=== PATIENT | male | born 1935 | race Asian ===

== ENCOUNTER 2018-01-02 12:00 | Inpatient (IN) | payer MEDICARE, MEDICAID ==
[~2018-01-02] VITALS: Ht 162.6 cm; Wt 65.8 kg
[~2018-01-02 12:00] MED LIST: AMIODARONE HCL100 MG ORAL; AMIODARONE HCL200 MG PO; ATENOLOL100 MG PO; Albuterol ud Inhalation HHN ONE; CIPRO500 MG/51 PO; DIGOXIN125 MCG ORAL; DILANTIN100 MG PO; DOXYCYCLINE MO150 MG PO; ECOTRIN325 MG PO; Ipratropium 0.02% Inh Soln 2.5ml UD HHN ONE; LEVOTHYROXINE50 MCG PO; NEXIUM40 MG PO; VIBRAMYCIN50 MG/5 M1 PO
[2018-01-02] MEDS ORDERED: Albuterol ud Inhalation ONE (12:08)
[2018-01-02] MEDS ORDERED: Ipratropium 0.02% Inh Soln 2.5ml UD ONE (12:08)
[2018-01-02 12:10] VITALS: BP 178/103
--- NOTE | 2018-01-02 12:27 | Emergency Room Report ---
History of Present Illness General Chief Complaint: Dyspnea/Respdistress Source: Patient, Family Member, EMS Present Illness HPI Patient was brought by EMS. Allegedly he was just discharged with a diagnosis of pneumonia to home (?[facility]). He was short of breath and his called EMS. There was a language barrier. Apparently O2 saturation was low in the field and oxygen was begun. The patient felt hot to touch. With phone tranlator, denies vomiting, rash, edema. Post gastrostomy tube. H/O throat cancer. H/O seizures - denies recent seizures. H/O hypothyroidism on meds. Patient not answering questions. History is limited. H/O end stage dementia Allergies: Coded Allergies: NO KNOWN ALLERGIES (Unverified Allergy, Unknown, 08/13/15) Patient History Limited by: medical condition Past Medical History: see triage record, old chart reviewed Past Surgical History: other - g tube Social History: Denies: smoking - former Social History Narrative Reviewed Nursing Documentation: PMH: Agreed; PSxH: Agreed Nursing Documentation-PMH Past Medical History: No History, Except For Hx Cardiac Problems: Yes Hx Hypertension: Yes Hx Cancer: Yes - throat Hx Gastrointestinal Problems: Yes - gtube Hx Neurological Problems: Yes Hx Dementia: Yes Hx Seizures: Yes Hx Concentration Difficulty: Yes Hx Syncope: Yes Hx Weakness: Yes Hx Fatigue: Yes Review of Systems All Other Systems: limited Physical Exam Vital Signs Date Time Temp Pulse Resp B/P (MAP) Pulse Ox O2 Delivery O2 Flow Rate FiO2 01/02/18 11:54 97.9 116 20 155/108 95 Room Air 97.9 01/02/18 12:08 21 Sp02 EP Interpretation: reviewed, abnormal - interpreted as low by me General Appearance: mild distress, lethargic - but eyes open, thin, Chronically Ill Head: normocephalic, atraumatic Eyes: bilateral eye normal inspection, bilateral eye PERRL ENT: dry mucus membranes Neck: supple Respiratory: respiratory distress - mild, rales, wheezing, expiration Cardiovascular #1: tachycardia Cardiovascular #2: 2+ radial (L) Gastrointestinal: normal bowel sounds, non tender, other - g tube, scaphoid Musculoskeletal: normal inspection, digits/nails normal, normal range of motion Neurologic: responsive, motor strength/tone normal - generalized weakness Psychiatric: depressed affect Skin: warm/dry Medical Decision Making Diagnostic Impression: Primary Impression: Pneumonia Qualified Codes: J18.9 - Pneumonia, unspecified organism Additional Impressions: Dehydration end stage dementia Bronchospasm ER Course The patient was recently discharged with a diagnosis of pneumonia and is now hypoxemic and dyspneic. DDX includes partially treated pneumonia, bronchospasm , acute myocardial infarction, electrolyte abnormality, aspiration amongst others. The patient needs to be evaluated with EKG, chest x-ray and labs including blood cultures. The patient will be treated with IV hydration. In addition breathing treatment will be ordered and broad-spectrum antibiotics will most likely be needed. EKG without injury. CXR with bilateral infiltrates. WBC high. Lactate normal. Some improvement with breathing treatments. O2 sat still low on oxygen. Improved with treatment. Admit med Dr. Pereyra. Laboratory Tests Test 01/02/18 11:55 01/02/18 13:35 01/02/18 20:00 White Blood Count 18.5 K/UL (4.8-10.8) H Red Blood Count 3.61 M/UL (4.70-6.10) L Hemoglobin 12.4 G/DL (14.2-18.0) L Hematocrit 35.7 % (42.0-52.0) L Mean Corpuscular Volume 99 FL (80-99) Mean Corpuscular Hemoglobin 34.5 PG (27.0-31.0) H Mean Corpuscular Hemoglobin Concent 34.8 G/DL (32.0-36.0) Red Cell Distribution Width 10.2 % (11.6-14.8) L Platelet Count 249 K/UL (150-450) Mean Platelet Volume 7.0 FL (6.5-10.1) Neutrophils (%) (Auto) % (45.0-75.0) Lymphocytes (%) (Auto) % (20.0-45.0) Monocytes (%) (Auto) % (1.0-10.0) Eosinophils (%) (Auto) % (0.0-3.0) Basophils (%) (Auto) % (0.0-2.0) Differential Total Cells Counted 100 Neutrophils % (Manual) 86 % (45-75) H Lymphocytes % (Manual) 9 % (20-45) L Monocytes % (Manual) 5 % (1-10) Eosinophils % (Manual) 0 % (0-3) Basophils % (Manual) 0 % (0-2) Band Neutrophils 0 % (0-8) Platelet Estimate Adequate Platelet Morphology Normal Red Blood Cell Morphology Normal Prothrombin Time 10.7 SEC (9.30-11.50) Prothrombin Time INR 1.0 (0.9-1.1) PTT 33 SEC (23-33) Sodium Level 138 MMOL/L (136-145) Potassium Level 4.0 MMOL/L (3.5-5.1) Chloride Level 103 MMOL/L (98-107) Carbon Dioxide Level 26 MMOL/L (21-32) Anion Gap 9 mmol/L (5-15) Blood Urea Nitrogen 37 mg/dL (7-18) H Creatinine 1.2 MG/DL (0.55-1.30) Estimate Glomerular Filtration Rate mL/min (>60) Glucose Level 132 MG/DL (74-106) H Lactic Acid Level 0.90 mmol/L (0.66-2.22) Calcium Level 8.7 MG/DL (8.5-10.1) Total Bilirubin 0.6 MG/DL (0.2-1.0) Aspartate Amino Transferase (AST) 27 U/L (15-37) Alanine Aminotransferase (ALT) 50 U/L (12-78) Alkaline Phosphatase 105 U/L (46-116) Total Creatine Kinase 46 U/L (26-308) Troponin I 0.017 ng/mL (0.000-0.056) 0.005 ng/mL (0.000-0.056) Pro-B-Type Natriuretic Peptide 201 pg/mL (0-125) H Total Protein 8.4 G/DL (6.4-8.2) H Albumin 3.6 G/DL (3.4-5.0) Globulin 4.8 g/dL Albumin/Globulin Ratio 0.8 (1.0-2.7) L Urine Color Pale yellow Urine Appearance Clear Urine pH 8 (4.5-8.0) Urine Specific [place] 1.015 (1.005-1.035) Urine Protein 1+ (NEGATIVE) H Urine Glucose (UA) Negative (NEGATIVE) Urine Ketones Negative (NEGATIVE) Urine Occult Blood 5+ (NEGATIVE) H Urine Nitrite Negative (NEGATIVE) Urine Bilirubin Negative (NEGATIVE) Urine Urobilinogen Normal MG/DL (0.0-1.0) Urine Leukocyte Esterase Negative (NEGATIVE) Urine RBC 40-60 /HPF (0 - 0) H Urine WBC 0-2 /HPF (0 - 0) Urine Squamous Epithelial Cells Few /LPF (NONE/OCC) Urine Bacteria Few /HPF (NONE) EKG Diagnostic Results Rate: tachycardiac Rhythm: NSR ST Segments: no acute changes Rhythm Strip Diag. Results EP Interpretation: yes Rhythm: no PVC's, no ectopy, other - Sinus tachycardia Chest X-Ray Diagnostic Results Chest X-Ray Diagnostic Results : Chest X-Ray Ordered: Yes # of Views/Limited/Complete: 1 View Indication: Shortness of Breath EP Interpretation: Yes Interpretation: no effusion, no pneumothorax, other - Bilateral infiltrates Impression: Other Electronically Signed by: Electronically signed by Donnell Judd MD Last Vital Signs Date Time Temp Pulse Resp B/P (MAP) Pulse Ox O2 Delivery O2 Flow Rate FiO2 01/02/18 17:54 117 01/02/18 16:01 98.0 18 154/78 99 Nasal Cannula 3.0 01/02/18 16:00 21 Status: improved Disposition: ADMITTED INPATIENT Condition: Serious Donnell Judd M.D. January 02, 2018 12:27
[2018-01-02 12:38] LABS: HEMATOCRIT 35.7 % (42.0-52.0); HEMOGLOBIN 12.4 G/DL (14.2-18.0); MEAN CORPUSCULAR VOLUME 99 FL (80-99); PLATELET COUNT 249 K/UL (150-450); RED BLOOD COUNT 3.61 M/UL (4.70-6.10); RED CELL DISTRIBUTION WIDTH 10.2 % (11.6-14.8); WHITE BLOOD COUNT 18.5 K/UL (4.8-10.8)
[2018-01-02 12:54] LABS: ANION GAP 9 mmol/L (5-15); BLOOD UREA NITROGEN 37 mg/dL (7-18); CALCIUM 8.7 MG/DL (8.5-10.1); CARBON DIOXIDE 26 MMOL/L (21-32); CHLORIDE 103 MMOL/L (98-107); CREATININE 1.2 MG/DL (0.55-1.30); SODIUM 138 MMOL/L (136-145)
[2018-01-02 12:59] LABS: ALANINE AMINOTRANSFERASE 50 U/L (12-78); ALBUMIN 3.6 G/DL (3.4-5.0); ALBUMIN/GLOBULIN RATIO 0.8 (1.0-2.7); ALKALINE PHOSPHATASE 105 U/L (46-116); ASPARTATE AMINO TRANSFERASE 27 U/L (15-37); BILIRUBIN,TOTAL 0.6 MG/DL (0.2-1.0); CREATINE KINASE 46 U/L (26-308)
[2018-01-02] MEDS ORDERED: Vancomycin 1 GM in D5W 275 ML IVPB ONE (13:15)
[2018-01-02] MEDS ORDERED: Cefepime HCl 1 GM in D5W 55 ML IVPB ONE (13:15)
--- NOTE | 2018-01-02 13:24 | Diagnostic Imaging Report ---
Indication: Dyspnea Technique: XRAY Chest 1v Comparison: 08/17/2015 FINDINGS/IMPRESSION: Heart size and mediastinal contours are stable compared to the prior exam allowing for differences in technique. There is bilateral interstitial opacification/edema and asymmetric subtle hazy opacity in the left lung base. Possibility of a developing infiltrate is not excluded. Correlation and follow-up exam recommended. There is no pneumothorax. No acute osseous abnormality.
[2018-01-02 13:46] LABS: APPEARANCE,URINE CLEAR; BILIRUBIN, URINE NEGATIVE (NEGATIVE); COLOR,URINE PALE YELLOW; GLUCOSE, URINE (UA) NEGATIVE (NEGATIVE); KETONES,URINE NEGATIVE (NEGATIVE); LEUKOCYTE ESTERASE ,URINE NEGATIVE (NEGATIVE); NITRITE,URINE NEGATIVE (NEGATIVE); PH,URINE 8 (4.5-8.0); PROTEIN,URINE 1+ (NEGATIVE); UROBILINOGEN,URINE NORMAL MG/DL (0.0-1.0)
[2018-01-02] MEDS ORDERED: Vancomycin 1gm inj IVPB ONE (15:32)
[2018-01-02 16:00] VITALS: BP_SYST 151; BP_SYST 154; BP_DIAS 104; BP_DIAS 80
[2018-01-02] MEDS ORDERED: Acetaminophen 650mg/20.3ml GT PRN (17:00)
[2018-01-02] MEDS: Amiodarone 200mg tab GT SCH (17:54)
[2018-01-02] MEDS: Phenytoin 100mg cap ORAL SCH (17:54)
[2018-01-02] MEDS: Digoxin 0.125mg tab ORAL SCH (17:54)
[2018-01-02] MEDS: Piperacillin/Tazobactam 3.375 GM in D5W 110 ML IVPB SCH ×2 (17:55→23:22)
[2018-01-02 20:00] VITALS: BP 112/75
[2018-01-02] MEDS: Vancomycin 750mg/NS 250ml IVPB SCH (21:58)
--- NOTE | 2018-01-02 23:30 | History and Physical Report ---
DATE OF ADMISSION: 01/02/2018 HISTORY OF PRESENT ILLNESS: This is a elderly male, 82 years old, who lives at home with family. He was discharged recently from outside hospital with pneumonia. The patient was found to be hypoxic. He was also febrile in the emergency room and admitted to the hospital for further management and care. PAST MEDICAL HISTORY: Notable for cardiac arrhythmias, hypertension, seizure disorder, and cognitive impairment. MEDICATIONS: Home medications reviewed and reconciled include Dilantin, Coreg, and . ALLERGIES: None. SOCIAL HISTORY: Lives at home with family. PHYSICAL EXAMINATION: GENERAL: Reveals elderly male. HEENT: Unremarkable. CHEST: Clear breath sounds bilaterally. ABDOMEN: Soft. EXTREMITIES: There is no edema. LABORATORY AND DIAGNOSTIC DATA: X-ray of chest shows bilateral infiltrates. Lab tests unremarkable. Normal CBC and BMP. IMPRESSION: 1. Possible UTI. 2. Pneumonia. 3. Hypoxemia. 4. Cardiac dysrhythmia. 5. Chronic G-tube. 6. Seizure disorder. DISCUSSION: Continue home medications to include Dilantin. Hold amiodarone. We will consult Cardiology. We will start empiric antibiotics. We will consult ID. Seizure precautions. Continue medications as discussed with family at bedside. Jackson Pereyra M.D. DR: LING JOB#: [id number] CC:
[2018-01-03] VITALS: BP 117/74
[2018-01-03 04:00] VITALS: BP 125/64
[2018-01-03 04:52] LABS: HEMATOCRIT 31.2 % (42.0-52.0); MEAN CORPUSCULAR VOLUME 98 FL (80-99); PLATELET COUNT 197 K/UL (150-450); RED BLOOD COUNT 3.19 M/UL (4.70-6.10); RED CELL DISTRIBUTION WIDTH 10.5 % (11.6-14.8); WHITE BLOOD COUNT 17.2 K/UL (4.8-10.8)
[2018-01-03 05:21] LABS: ALANINE AMINOTRANSFERASE 40 U/L (12-78); ALBUMIN/GLOBULIN RATIO 0.8 (1.0-2.7); ALKALINE PHOSPHATASE 77 U/L (46-116); ANION GAP 10 mmol/L (5-15); ASPARTATE AMINO TRANSFERASE 27 U/L (15-37); BILIRUBIN,TOTAL 0.8 MG/DL (0.2-1.0); BLOOD UREA NITROGEN 28 mg/dL (7-18); CALCIUM 8.2 MG/DL (8.5-10.1); CARBON DIOXIDE 26 MMOL/L (21-32); CHLORIDE 105 MMOL/L (98-107); CREATININE 1.1 MG/DL (0.55-1.30); POTASSIUM 3.8 MMOL/L (3.5-5.1); SODIUM 140 MMOL/L (136-145)
[2018-01-03] MEDS: Piperacillin/Tazobactam 3.375 GM in D5W 110 ML IVPB SCH ×3 (06:17→23:15)
[2018-01-03 08:14] VITALS: BP 151/79
[2018-01-03] MEDS: Digoxin 0.125mg tab ORAL SCH (08:44)
[2018-01-03] MEDS: Amiodarone 200mg tab GT SCH (08:44)
[2018-01-03] MEDS: Phenytoin 100mg cap ORAL SCH (08:44)
[2018-01-03] MEDS: Vancomycin 750mg/NS 250ml IVPB SCH ×2 (08:44→21:38)
[2018-01-03 12:09] VITALS: BP 138/94
--- NOTE | 2018-01-03 13:30 | Consultation ---
DATE OF CONSULTATION: 01/03/2018 INFECTIOUS DISEASES CONSULTATION CONSULTING PHYSICIAN: Josiane Harrell M.D. REFERRING PHYSICIAN: Jackson Pereyra M.D. REASON FOR CONSULTATION: Pneumonia. HISTORY OF PRESENTING ILLNESS: This is an 82-year-old gentleman with history of hypertension, seizure disorder, cardiac arrhythmia, who came in from an outside hospital with hypoxia. He was found to have a pneumonia and an Infectious Diseases consultation has been obtained for antibiotics. PAST MEDICAL HISTORY: 1. History of hypertension. 2. Seizure disorder. 3. Cognitive impairment. 4. Cardiac arrhythmia. SOCIAL HISTORY: He lives at home with his family. Rest of the history is unknown. FAMILY HISTORY: Unknown. REVIEW OF SYSTEMS: Unable to obtain currently. MEDICATIONS: As an inpatient, the patient is on levothyroxine, vancomycin, amiodarone, digoxin, phenytoin, Tylenol, doxycycline, and Zosyn. ALLERGIES: No known drug allergies. PHYSICAL EXAMINATION: VITAL SIGNS: Temperature of 97.5, T-max of 98.2, pulse of 109, respiratory rate 20, blood pressure 151/79, and O2 saturation of 97%. HEENT: Pupils equally reactive to light and accommodation. Mouth appears clean without thrush. NECK: Supple. No adenopathy. No JVD. CARDIOVASCULAR: Regular rate and rhythm. No murmurs. LUNGS: Clear to auscultation bilaterally. No crackles. No wheezes. ABDOMEN: Soft and nontender. No organomegaly. G-tube site appears clean. EXTREMITIES: No cyanosis, no clubbing, no edema. LABORATORY AND DIAGNOSTIC DATA: White count of 17.2 today, white count of 18.5 yesterday, hemoglobin 11, hematocrit 31.2, MCV 98, platelet count of 197 with neutrophils of 89%. Sodium 140, potassium 3.8, chloride 105, bicarb 26, BUN 28, creatinine 1.1, glucose 134, and calcium 8.2. Total bilirubin 0.8. AST 27, ALT 40, and alkaline phosphatase 77. Total protein 6.8. Albumin 3. UA showing 0 to 2 white cells. Blood cultures are pending. Chest x-ray showing bilateral interstitial opacification, edema, and opacity in the left lung base most with possible pneumonia. No pneumothorax noted. ASSESSMENT: 1. This is an 82-year-old gentleman with history of cardiac arrhythmia and hypertension, who comes in with possible aspiration pneumonia. 2. Leukocytosis is improving. 3. Seizure disorder. PLAN: 1. Continue vancomycin, Zosyn, and doxycycline. 2. We will order sputum cultures. 3. We will order for serum Legionella antibody. 4. We will order for mycoplasma serology. 5. We will follow up cultures and adjust antibiotics accordingly. I would like to thank, Dr. Pereyra, for this consultation. Josiane Harrell M.D. DR: RONALD JOB#: [id number] CC: Jackson Pereyra M.D.; Fax#: [phone]
--- NOTE | 2018-01-03 13:46 | Pulmonology Progress Note ---
Assessment/Plan Assessment/Plan 1. Possible UTI. 2. Pneumonia. 3. Hypoxemia. 4. Cardiac dysrhythmia. 5. Chronic G-tube. 6. Seizure disorder. DISCUSSION: Continue home medications including Dilantin. I will consult Cardiology. continue empiric antibiotics per ID consultation. Seizure precautions. Subjective Interval Events: On enteral nutrition Constitutional: Reports: no symptoms HEENT: Repors: no symptoms Respiratory: Reports: no symptoms Cardiovascular: Reports: no symptoms Gastrointestinal/Abdominal: Reports: no symptoms Allergies: Coded Allergies: NO KNOWN ALLERGIES (Unverified Allergy, Unknown, 08/13/15) Objective Last 24 Hour Vital Signs Date Time Temp Pulse Resp B/P (MAP) Pulse Ox O2 Delivery O2 Flow Rate FiO2 01/03/18 12:09 97.3 98 20 138/94 98 Nasal Cannula 2.0 97.3 01/03/18 08:44 109 01/03/18 08:14 97.5 91 20 151/79 97 Nasal Cannula 2.0 97.5 01/03/18 08:00 97 01/03/18 05:00 170 01/03/18 04:00 84 01/03/18 04:00 97.3 87 22 125/64 97 Nasal Cannula 2.0 97.3 01/03/18 00:00 98.2 95 19 117/74 98 Nasal Cannula 2.0 98.2 01/02/18 23:39 94 01/02/18 20:00 97.7 98 22 112/75 99 Nasal Cannula 2.0 97.7 01/02/18 17:54 117 01/02/18 16:01 98.0 101 18 154/78 99 Nasal Cannula 3.0 01/02/18 16:00 123 01/02/18 16:00 97.9 101 23 154/80 95 Room Air 21 97.9 01/02/18 16:00 98.1 117 20 151/104 97 Nasal Cannula 2.0 98.1 Intake and Output 01/02/18 01/03/18 19:00 07:00 Intake Total 27.5 ml 362.500 ml Output Total 350 ml 600 ml Balance -322.5 ml -237.500 ml IV Total 27.5 ml 332.500 ml Tube Feeding 30 ml Output Urine Total 350 ml 600 ml # Voids 1 General Appearance: no acute distress HEENT: normocephalic Respiratory/Chest: chest wall non-tender, lungs clear Cardiovascular: normal peripheral pulses, normal rate Abdomen: normal bowel sounds Microbiology Date/Time Source Procedure Growth Status 01/02/18 12:05 Blood Blood Culture - Preliminary Resulted Laboratory Tests 01/02/18 20:00: Troponin I 0.005 01/03/18 03:50: Troponin I 0.000, White Blood Count 17.2H, Red Blood Count 3.19L, Hemoglobin 11.0L, Hematocrit 31.2L, Mean Corpuscular Volume 98, Mean Corpuscular Hemoglobin 34.6H, Mean Corpuscular Hemoglobin Concent 35.4, Red Cell Distribution Width 10.5L, Platelet Count 197, Mean Platelet Volume 7.4, Neutrophils (%) (Auto) , Lymphocytes (%) (Auto) , Monocytes (%) (Auto) , Eosinophils (%) (Auto) , Basophils (%) (Auto) , Differential Total Cells Counted 100, Neutrophils % (Manual) 89H, Lymphocytes % (Manual) 7L, Monocytes % (Manual) 4, Eosinophils % (Manual) 0, Basophils % (Manual) 0, Band Neutrophils 0 , Platelet Estimate Adequate, Platelet Morphology Normal, Red Blood Cell Morphology Normal, Anisocytosis , Sodium Level 140, Potassium Level 3.8, Chloride Level 105, Carbon Dioxide Level 26, Anion Gap 10, Blood Urea Nitrogen 28H, Creatinine 1.1, Estimat Glomerular Filtration Rate , Glucose Level 134H, Calcium Level 8.2L, Total Bilirubin 0.8, Aspartate Amino Transf (AST/SGOT) 27, Alanine Aminotransferase (ALT/SGPT) 40, Alkaline Phosphatase 77, Total Protein 6.8, Albumin 3.0L, Globulin 3.8, Albumin/Globulin Ratio 0.8L Current Medications Medications (Trade) Dose Ordered Sig/David Route PRN Reason Start Time Stop Time Status Last Admin Dose Admin Acetaminophen (Tylenol) 650 mg Q6H PRN GT Headache/Temp > 101 01/02/18 17:00 02/01/18 16:59 Amiodarone HCl (Cordarone) 200 mg DAILY GT 01/02/18 18:15 02/01/18 18:14 01/03/18 08:44 Digoxin (Lanoxin) 0.125 mg DAILY ORAL 01/02/18 18:15 02/01/18 18:14 01/03/18 08:44 Doxycycline Monohydrate (Vibramycin) 100 mg EVERY 12 HOURS ORAL 01/02/18 16:20 01/09/18 16:19 01/03/18 08:44 Levothyroxine Sodium (Synthroid) 50 mcg ACBREAKFAST GT 01/03/18 06:30 02/02/18 06:29 01/03/18 06:14 Phenytoin (Dilantin) 100 mg EVERY 8 HOURS NG 01/03/18 14:00 02/02/18 13:59 Piperacillin Sod/ Tazobactam Sod 3.375 gm/Dextrose 110 ml @ 27.5 mls/hr EVERY 8 HOURS IVPB 01/02/18 16:15 01/07/18 16:14 01/03/18 06:17 Vancomycin HCl (Vanco rx to dose) 1 ea DAILY PRN MISC Per rx protocol 01/02/18 16:15 02/01/18 16:14 Vancomycin/Sodium Chloride 250 ml @ 166.667 mls/hr Q12H IVPB 01/02/18 21:00 01/07/18 20:59 01/03/18 08:44 Jackson Pereyra MD January 03, 2018 13:46
--- NOTE | 2018-01-03 14:06 | Cardiology Report ---
APPROVED REPORT EXAM: Two-dimensional and M-mode echocardiogram with Doppler and color Doppler. INDICATION Chest Pain M-Mode DIMENSIONS IVSd1.1 (0.7-1.1cm)Left Atrium (MM)2.9 (1.6-4.0cm) LVDd5.4 (3.5-5.6cm)Aortic Root4.2 (2.0-3.7cm) PWd1.2 (0.7-1.1cm)Aortic Cusp Exc.2.0 (1.5-2.0cm) IVSs1.5 cm LVDs3.7 (2.5-4.0cm) PWs2.0 cm Technically difficult study due to poor acoustical windows. Normal left ventricular chamber size, systolic function and wall motion to extent visualized. Left ventricular ejection fraction estimated to be 55-60 %. Mild left ventricular hypertrophy by 2-D. Small posterior pericardial effusion. All other cardiac chamber sizes are within normal limits. Focal aortic valve sclerosis with adequate cusp excursion. Mildly Thickened mitral valve leaflets with normal excursion. Mildly Mitral annulus and aortic root calcification. Pulmonic valve not well visualized. Normal tricuspid valve structure. A color flow and spectral Doppler study was performed and revealed: Mild aortic regurgitation. Trace mitral regurgitation. Mitral diastolic velocities suggest reduced left ventricular relaxation c/w mild LV diastolic dysfunction (Grade I ). Trace tricuspid regurgitation. Tricuspid systolic velocities suggests peak right ventricular systolic pressure of 28 mmHg No Pulmonic regurgitation present
[2018-01-03] MEDS: Phenytoin Susp 100mg/4ml NG SCH ×2 (14:13→21:39)
--- NOTE | 2018-01-03 14:37 | Cardiology Report ---
APPROVED REPORT EKG Measurement Heart [id number] Sinus tachycardia Possible Left atrial enlargement Borderline ECG
[2018-01-03 16:00] VITALS: BP 125/69
[2018-01-03 20:00] VITALS: BP 125/87
[2018-01-04] VITALS: BP 143/92
[2018-01-04 04:00] VITALS: BP 142/101
[2018-01-04] MEDS: Phenytoin Susp 100mg/4ml NG SCH ×3 (05:58→22:08)
[2018-01-04] MEDS: Piperacillin/Tazobactam 3.375 GM in D5W 110 ML IVPB SCH ×3 (05:58→22:08)
[2018-01-04 08:00] VITALS: BP 156/93
--- NOTE | 2018-01-04 08:21 | Pulmonology Progress Note ---
Assessment/Plan Assessment/Plan 1. Possible UTI. 2. Pneumonia. 3. Hypoxemia. 4. Cardiac dysrhythmia. 5. Chronic G-tube. 6. Seizure disorder. DISCUSSION: Continue home medications including Dilantin. continue empiric antibiotics per ID consultation. Seizure precautions. Subjective Interval Events: No changes Constitutional: Reports: no symptoms HEENT: Repors: no symptoms Respiratory: Reports: no symptoms Cardiovascular: Reports: no symptoms Gastrointestinal/Abdominal: Reports: no symptoms Genitourinary: Reports: no symptoms Allergies: Coded Allergies: NO KNOWN ALLERGIES (Unverified Allergy, Unknown, 08/13/15) Objective Last 24 Hour Vital Signs Date Time Temp Pulse Resp B/P (MAP) Pulse Ox O2 Delivery O2 Flow Rate FiO2 01/04/18 04:00 98.0 101 20 142/101 99 Nasal Cannula 3.0 98.0 01/04/18 03:27 82 01/04/18 00:00 97.2 91 17 143/92 100 Nasal Cannula 3.0 97.2 01/03/18 23:33 96 01/03/18 20:00 98.0 94 16 125/87 99 Nasal Cannula 3.0 98.0 01/03/18 16:00 97.7 96 20 125/69 97 Nasal Cannula 2.0 97.7 01/03/18 16:00 96 01/03/18 12:09 97.3 98 20 138/94 98 Nasal Cannula 2.0 97.3 01/03/18 12:00 96 01/03/18 08:44 109 Intake and Output 01/03/18 01/04/18 19:00 07:00 Intake Total 900.834 ml 463.682 ml Output Total 800 ml Balance 900.834 ml -336.318 ml Intake Free Water 100 ml IV Total 360.834 ml 413.682 ml Tube Feeding 440 ml 50 ml Output Urine Total 800 ml # Voids 1 3 General Appearance: no acute distress HEENT: normocephalic Respiratory/Chest: chest wall non-tender, lungs clear Cardiovascular: normal peripheral pulses, normal rate Abdomen: normal bowel sounds Microbiology Date/Time Source Procedure Growth Status 01/02/18 12:05 Blood Blood Culture - Preliminary Resulted 01/02/18 12:05 Blood Blood Culture - Preliminary NO GROWTH AFTER 24 HOURS Resulted 01/02/18 14:57 Rectum VRE Culture - Final Enterococcus Faecium - Vre Complete Current Medications Medications (Trade) Dose Ordered Sig/David Route PRN Reason Start Time Stop Time Status Last Admin Dose Admin Acetaminophen (Tylenol) 650 mg Q6H PRN GT Headache/Temp > 101 01/02/18 17:00 02/01/18 16:59 Amiodarone HCl (Cordarone) 200 mg DAILY GT 01/02/18 18:15 02/01/18 18:14 01/03/18 08:44 Digoxin (Lanoxin) 0.125 mg DAILY ORAL 01/02/18 18:15 02/01/18 18:14 01/03/18 08:44 Doxycycline Monohydrate (Vibramycin) 100 mg EVERY 12 HOURS ORAL 01/02/18 16:20 01/09/18 16:19 01/03/18 21:38 Levothyroxine Sodium (Synthroid) 50 mcg ACBREAKFAST GT 01/03/18 06:30 02/02/18 06:29 01/04/18 05:58 Phenytoin (Dilantin) 100 mg EVERY 8 HOURS NG 01/03/18 14:00 02/02/18 13:59 01/04/18 05:58 Piperacillin Sod/ Tazobactam Sod 3.375 gm/Dextrose 110 ml @ 27.5 mls/hr EVERY 8 HOURS IVPB 01/02/18 16:15 01/07/18 16:14 01/04/18 05:58 Vancomycin HCl (Vanco rx to dose) 1 ea DAILY PRN MISC Per rx protocol 01/02/18 16:15 02/01/18 16:14 Vancomycin/Sodium Chloride 250 ml @ 166.667 mls/hr Q12H IVPB 01/02/18 21:00 01/07/18 20:59 01/03/18 21:38 Jackson Pereyra MD January 04, 2018 08:21
--- NOTE | 2018-01-04 08:54 | Physician Query ---
--------- THIS DOCUMENT IS A PERMANENT PART OF THE MEDICAL RECORD --------- PLEASE COMPLETE THE DOCUMENT BEFORE SIGNING Dear Dr. Pereyra Date: 01/04/2018 [employer] Name: Luci Slaughter [employer] Phone # Exercise your independent professional judgment when responding to query. Question asked do not imply a particular answer is desired/expected Clinical Documentation States: Patient admitted with Pneumonia and possible UTI (H & P from 01/02/2018) and started on empiric antibiotics (Levofloxacin, Vancomycin, Cefepime). Clinical Findings Show: At the time of admission Heart rate of 113 respiratory rate of 23 WBC count of 18,500 Please clarify which, if any of the following is the most likely etiology of the above symptoms and treatment rendered: [ ] Sepsis [ ] Severe sepsis (sepsis with organ dysfunction secondary to infection) [ ] SIRS non-infectious origin (without organ dysfunction) [ ] Septic shock (severe sepsis plus hypotension and organ hypoperfusion) [ ] Localized infection only, without systemic illness please specify site: [ ] Bacteremia (abnormal lab finding only, does not indicate systemic illness [ ] Other: Please clarify: [ ] Unable to determine: provide reason: Sepsis Criteria Sepsis: Presence of 1 or more criteria in this row. Positive cultures (but not required) or WBCs present in otherwise sterile fluid: blood, urine, sputum, CSF , etc.? Prescribed anti-infective therapy: antibiotic, antifungal, and other? Documentation of pneumonia: positive x-ray or clinical presentation? Perforated viscus: perforation of a hollow organ, e.g. bowel? SIRS: Presence of > 2 criteria in this row Temperature: > 100.4 F. or < 96.8 F. Heart rate: > 90 bpm Respiratory rate: > 20/min. WBC count: > 12,000/mm2 < 4,000/mm2 > 10% bands present on admission? [ ] Yes [ ] No [ ] Clinically undeterminable Please also document in your Progress Notes and/or Discharge Summary and indicate if the condition was present on admission. MTDD
[2018-01-04] MEDS: Digoxin 0.125mg tab ORAL SCH (10:04)
[2018-01-04] MEDS: Amiodarone 200mg tab GT SCH (10:05)
[2018-01-04] MEDS: Vancomycin 750mg/NS 250ml IVPB SCH ×2 (10:10→20:58)
[2018-01-04 12:00] VITALS: BP 146/94
--- NOTE | 2018-01-04 12:40 | Infectious Diseases Prog Note ---
Assessment/Plan Assessment/Plan A; Pneumonia Bacteremia MRSA & VRE colonization HPN Hypothyroidism P: Continue Vancomycin & Zosyn Will f/u cultures Subjective ROS Limited/Unobtainable: Yes Respiratory: Reports: productive cough Allergies: Coded Allergies: NO KNOWN ALLERGIES (Unverified Allergy, Unknown, 08/13/15) Objective Vital Signs Last 24 Hour Vital Signs Date Time Temp Pulse Resp B/P (MAP) Pulse Ox O2 Delivery O2 Flow Rate FiO2 01/04/18 10:04 89 01/04/18 08:00 97.0 89 19 156/93 98 Nasal Cannula 2.0 97.0 01/04/18 08:00 93 01/04/18 04:00 98.0 101 20 142/101 99 Nasal Cannula 3.0 98.0 01/04/18 03:27 82 01/04/18 00:00 97.2 91 17 143/92 100 Nasal Cannula 3.0 97.2 01/03/18 23:33 96 01/03/18 20:00 98.0 94 16 125/87 99 Nasal Cannula 3.0 98.0 01/03/18 16:00 97.7 96 20 125/69 97 Nasal Cannula 2.0 97.7 01/03/18 16:00 96 Height (Feet): 5 Height (Inches): 4.00 Weight (Pounds): 145 HEENT: mucous membranes moist Respiratory/Chest: lungs clear, other - O2 by nasal cannula Cardiovascular: normal rate Abdomen: soft, non tender, other - GT feeding Extremities: no edema Neurologic/Psychiatric: alert, responsive Microbiology Date/Time Source Procedure Growth Status 01/02/18 12:05 Blood Blood Culture - Preliminary Resulted 01/02/18 12:05 Blood Blood Culture - Preliminary NO GROWTH AFTER 24 HOURS Resulted 01/02/18 14:57 Nasal Nares MRSA Culture - Final Staphylococcus Aureus - Mrsa Complete 01/02/18 14:57 Rectum VRE Culture - Final Enterococcus Faecium - Vre Complete Current Medications Medications (Trade) Dose Ordered Sig/David Route PRN Reason Start Time Stop Time Status Last Admin Dose Admin Acetaminophen (Tylenol) 650 mg Q6H PRN GT Headache/Temp > 101 01/02/18 17:00 02/01/18 16:59 Amiodarone HCl (Cordarone) 200 mg DAILY GT 01/02/18 18:15 02/01/18 18:14 01/04/18 10:05 Digoxin (Lanoxin) 0.125 mg DAILY ORAL 01/02/18 18:15 02/01/18 18:14 01/04/18 10:04 Doxycycline Monohydrate (Vibramycin) 100 mg EVERY 12 HOURS ORAL 01/02/18 16:20 01/09/18 16:19 01/04/18 10:03 Levothyroxine Sodium (Synthroid) 50 mcg ACBREAKFAST GT 01/03/18 06:30 02/02/18 06:29 01/04/18 05:58 Phenytoin (Dilantin) 100 mg EVERY 8 HOURS NG 01/03/18 14:00 02/02/18 13:59 01/04/18 05:58 Piperacillin Sod/ Tazobactam Sod 3.375 gm/Dextrose 110 ml @ 27.5 mls/hr EVERY 8 HOURS IVPB 01/02/18 16:15 01/07/18 16:14 01/04/18 05:58 Vancomycin HCl (Vanco rx to dose) 1 ea DAILY PRN MISC Per rx protocol 01/02/18 16:15 02/01/18 16:14 Vancomycin/Sodium Chloride 250 ml @ 166.667 mls/hr Q12H IVPB 01/02/18 21:00 01/07/18 20:59 01/04/18 10:10 FABIOLA GALAN January 04, 2018 12:40
[2018-01-04 16:00] VITALS: BP 109/76
[2018-01-04 20:19] VITALS: BP 110/72
[2018-01-05 00:12] VITALS: BP 130/84
[2018-01-05 04:00] VITALS: BP 134/68
[2018-01-05] MEDS: Phenytoin Susp 100mg/4ml NG SCH (06:12)
[2018-01-05] MEDS: Piperacillin/Tazobactam 3.375 GM in D5W 110 ML IVPB SCH (06:12)
[2018-01-05 08:00] VITALS: BP 137/75
[2018-01-05 08:29] LABS: BASOPHILS % (AUTO) 0.7 % (0.0-2.0); EOSINOPHILS % (AUTO) 1.7 % (0.0-3.0); HEMATOCRIT 35.9 % (42.0-52.0); HEMOGLOBIN 12.8 G/DL (14.2-18.0); LYMPHOCYTES % (AUTO) 11.5 % (20.0-45.0); MEAN CORPUSCULAR VOLUME 97 FL (80-99); MONOCYTES % (AUTO) 9.9 % (1.0-10.0); NEUTROPHILS % (AUTO) 76.2 % (45.0-75.0); PLATELET COUNT 199 K/UL (150-450); WHITE BLOOD COUNT 8.8 K/UL (4.8-10.8)
[2018-01-05 08:38] LABS: ANION GAP 9 mmol/L (5-15); BLOOD UREA NITROGEN 23 mg/dL (7-18); CALCIUM 9.2 MG/DL (8.5-10.1); CARBON DIOXIDE 29 MMOL/L (21-32); CHLORIDE 101 MMOL/L (98-107); CREATININE 1.1 MG/DL (0.55-1.30); POTASSIUM 3.7 MMOL/L (3.5-5.1); SODIUM 139 MMOL/L (136-145)
[2018-01-05] MEDS: Digoxin 0.125mg tab ORAL SCH (09:36)
[2018-01-05] MEDS: Amiodarone 200mg tab GT SCH (09:36)
[2018-01-05] MEDS: Vancomycin 750mg/NS 250ml IVPB SCH (09:36)
--- NOTE | 2018-01-05 09:48 | Pulmonology Progress Note ---
Assessment/Plan Assessment/Plan 1. Possible UTI. 2. Pneumonia. 3. Hypoxemia. 4. Cardiac dysrhythmia. 5. Chronic G-tube. 6. Seizure disorder. DISCUSSION: Continue home medications including Dilantin. continue empiric antibiotics per ID consultation. Seizure precautions. Will dc home on Levaquin Subjective Interval Events: Much better Constitutional: Reports: no symptoms HEENT: Repors: no symptoms Respiratory: Reports: no symptoms Cardiovascular: Reports: no symptoms Gastrointestinal/Abdominal: Reports: no symptoms Allergies: Coded Allergies: NO KNOWN ALLERGIES (Unverified Allergy, Unknown, 08/13/15) Objective Last 24 Hour Vital Signs Date Time Temp Pulse Resp B/P (MAP) Pulse Ox O2 Delivery O2 Flow Rate FiO2 01/05/18 09:36 91 01/05/18 08:00 97.6 75 20 137/75 98 Nasal Cannula 2.0 97.6 01/05/18 04:01 84 01/05/18 04:00 97.5 82 20 134/68 98 Nasal Cannula 2.0 97.5 01/05/18 00:12 97.0 61 20 130/84 100 Nasal Cannula 2.0 97.0 01/04/18 23:38 74 01/04/18 20:19 96.1 71 20 110/72 100 Nasal Cannula 2.0 96.1 01/04/18 19:13 83 01/04/18 16:00 103 01/04/18 16:00 97.3 87 19 109/76 98 Nasal Cannula 2.0 97.3 01/04/18 12:00 97.5 94 19 146/94 98 Nasal Cannula 2.0 97.5 01/04/18 12:00 89 01/04/18 10:04 89 Intake and Output 01/04/18 01/05/18 19:00 07:00 Intake Total 1193.334 ml Output Total 350 ml Balance -350 ml 1193.334 ml Intake Free Water 200 ml IV Total 443.334 ml Tube Feeding 550 ml Output Urine Total 350 ml # Voids 5 General Appearance: no acute distress HEENT: normocephalic Respiratory/Chest: chest wall non-tender Cardiovascular: normal peripheral pulses, normal rate Abdomen: normal bowel sounds, soft, non tender Microbiology Date/Time Source Procedure Growth Status 01/02/18 12:05 Blood Blood Culture - Preliminary Staphylococcus Sp Coag Neg Resulted 01/02/18 12:05 Blood Blood Culture - Preliminary NO GROWTH AFTER 48 HOURS Resulted 01/02/18 14:57 Nasal Nares MRSA Culture - Final Staphylococcus Aureus - Mrsa Complete 01/02/18 14:57 Rectum VRE Culture - Final Enterococcus Faecium - Vre Complete Laboratory Tests 01/05/18 07:35: White Blood Count 8.8, Red Blood Count 3.70L, Hemoglobin 12.8L, Hematocrit 35.9L , Mean Corpuscular Volume 97, Mean Corpuscular Hemoglobin 34.7H, Mean Corpuscular Hemoglobin Concent 35.8, Red Cell Distribution Width 10.0L, Platelet Count 199, Mean Platelet Volume 8.0, Neutrophils (%) (Auto) 76.2H, Lymphocytes (%) (Auto) 11.5L, Monocytes (%) (Auto) 9.9, Eosinophils (%) (Auto) 1.7, Basophils (%) (Auto) 0.7, Sodium Level 139, Potassium Level 3.7, Chloride Level 101, Carbon Dioxide Level 29, Anion Gap 9, Blood Urea Nitrogen 23H, Creatinine 1.1, Estimat Glomerular Filtration Rate , Glucose Level 115H, Calcium Level 9.2 Current Medications Medications (Trade) Dose Ordered Sig/David Route PRN Reason Start Time Stop Time Status Last Admin Dose Admin Acetaminophen (Tylenol) 650 mg Q6H PRN GT Headache/Temp > 101 01/02/18 17:00 02/01/18 16:59 Amiodarone HCl (Cordarone) 200 mg DAILY GT 01/02/18 18:15 02/01/18 18:14 01/05/18 09:36 Digoxin (Lanoxin) 0.125 mg DAILY ORAL 01/02/18 18:15 02/01/18 18:14 01/05/18 09:36 Doxycycline Monohydrate (Vibramycin) 100 mg EVERY 12 HOURS ORAL 01/02/18 16:20 01/09/18 16:19 01/05/18 09:35 Levothyroxine Sodium (Synthroid) 50 mcg ACBREAKFAST GT 01/03/18 06:30 02/02/18 06:29 01/05/18 06:12 Phenytoin (Dilantin) 100 mg EVERY 8 HOURS NG 01/03/18 14:00 02/02/18 13:59 01/05/18 06:12 Piperacillin Sod/ Tazobactam Sod 3.375 gm/Dextrose 110 ml @ 27.5 mls/hr EVERY 8 HOURS IVPB 01/02/18 16:15 01/07/18 16:14 01/05/18 06:12 Vancomycin HCl (Vanco rx to dose) 1 ea DAILY PRN MISC Per rx protocol 01/02/18 16:15 02/01/18 16:14 Vancomycin/Sodium Chloride 250 ml @ 166.667 mls/hr Q12H IVPB 01/02/18 21:00 01/07/18 20:59 01/05/18 09:36 Jackson Pereyra MD January 05, 2018 09:48
[2018-01-05] MEDS ORDERED: LEVAQUIN500 MG ORAL (09:49)
--- NOTE | 2018-01-05 10:34 | Infectious Diseases Prog Note ---
Assessment/Plan Assessment/Plan A; Pneumonia CoANS in blood contamination MRSA & VRE colonization HPN Hypothyroidism P: discontinue Vancomycin , Continue Zosyn Will f/u cultures Subjective ROS Limited/Unobtainable: Yes Allergies: Coded Allergies: NO KNOWN ALLERGIES (Unverified Allergy, Unknown, 08/13/15) Objective Vital Signs Last 24 Hour Vital Signs Date Time Temp Pulse Resp B/P (MAP) Pulse Ox O2 Delivery O2 Flow Rate FiO2 01/05/18 09:36 91 01/05/18 08:00 97.6 75 20 137/75 98 Nasal Cannula 2.0 97.6 01/05/18 04:01 84 01/05/18 04:00 97.5 82 20 134/68 98 Nasal Cannula 2.0 97.5 01/05/18 00:12 97.0 61 20 130/84 100 Nasal Cannula 2.0 97.0 01/04/18 23:38 74 01/04/18 20:19 96.1 71 20 110/72 100 Nasal Cannula 2.0 96.1 01/04/18 19:13 83 01/04/18 16:00 103 01/04/18 16:00 97.3 87 19 109/76 98 Nasal Cannula 2.0 97.3 01/04/18 12:00 97.5 94 19 146/94 98 Nasal Cannula 2.0 97.5 01/04/18 12:00 89 Height (Feet): 5 Height (Inches): 4.00 Weight (Pounds): 145 General Appearance: no acute distress HEENT: mucous membranes moist Respiratory/Chest: lungs clear Cardiovascular: normal rate Abdomen: soft, non tender, other - GT feeding Extremities: no edema Neurologic/Psychiatric: alert, responsive Microbiology Date/Time Source Procedure Growth Status 01/02/18 12:05 Blood Blood Culture - Preliminary Staphylococcus Sp Coag Neg Resulted 01/02/18 12:05 Blood Blood Culture - Preliminary NO GROWTH AFTER 48 HOURS Resulted 01/02/18 14:57 Nasal Nares MRSA Culture - Final Staphylococcus Aureus - Mrsa Complete 01/02/18 14:57 Rectum VRE Culture - Final Enterococcus Faecium - Vre Complete Laboratory Tests Test 01/05/18 07:35 White Blood Count 8.8 K/UL (4.8-10.8) Red Blood Count 3.70 M/UL (4.70-6.10) L Hemoglobin 12.8 G/DL (14.2-18.0) L Hematocrit 35.9 % (42.0-52.0) L Mean Corpuscular Volume 97 FL (80-99) Mean Corpuscular Hemoglobin 34.7 PG (27.0-31.0) H Mean Corpuscular Hemoglobin Concent 35.8 G/DL (32.0-36.0) Red Cell Distribution Width 10.0 % (11.6-14.8) L Platelet Count 199 K/UL (150-450) Mean Platelet Volume 8.0 FL (6.5-10.1) Neutrophils (%) (Auto) 76.2 % (45.0-75.0) H Lymphocytes (%) (Auto) 11.5 % (20.0-45.0) L Monocytes (%) (Auto) 9.9 % (1.0-10.0) Eosinophils (%) (Auto) 1.7 % (0.0-3.0) Basophils (%) (Auto) 0.7 % (0.0-2.0) Sodium Level 139 MMOL/L (136-145) Potassium Level 3.7 MMOL/L (3.5-5.1) Chloride Level 101 MMOL/L (98-107) Carbon Dioxide Level 29 MMOL/L (21-32) Anion Gap 9 mmol/L (5-15) Blood Urea Nitrogen 23 mg/dL (7-18) H Creatinine 1.1 MG/DL (0.55-1.30) Estimat Glomerular Filtration Rate mL/min (>60) Glucose Level 115 MG/DL (74-106) H Calcium Level 9.2 MG/DL (8.5-10.1) Current Medications Medications (Trade) Dose Ordered Sig/David Route PRN Reason Start Time Stop Time Status Last Admin Dose Admin Acetaminophen (Tylenol) 650 mg Q6H PRN GT Headache/Temp > 101 01/02/18 17:00 02/01/18 16:59 Amiodarone HCl (Cordarone) 200 mg DAILY GT 01/02/18 18:15 02/01/18 18:14 01/05/18 09:36 Digoxin (Lanoxin) 0.125 mg DAILY ORAL 01/02/18 18:15 02/01/18 18:14 01/05/18 09:36 Doxycycline Monohydrate (Vibramycin) 100 mg EVERY 12 HOURS ORAL 01/02/18 16:20 01/09/18 16:19 01/05/18 09:35 Levothyroxine Sodium (Synthroid) 50 mcg ACBREAKFAST GT 01/03/18 06:30 02/02/18 06:29 01/05/18 06:12 Phenytoin (Dilantin) 100 mg EVERY 8 HOURS NG 01/03/18 14:00 02/02/18 13:59 01/05/18 06:12 Piperacillin Sod/ Tazobactam Sod 3.375 gm/Dextrose 110 ml @ 27.5 mls/hr EVERY 8 HOURS IVPB 01/02/18 16:15 01/07/18 16:14 01/05/18 06:12 Vancomycin HCl (Vanco rx to dose) 1 ea DAILY PRN MISC Per rx protocol 01/02/18 16:15 02/01/18 16:14 Vancomycin/Sodium Chloride 250 ml @ 166.667 mls/hr Q12H IVPB 01/02/18 21:00 01/07/18 20:59 01/05/18 09:36 FABIOLA GALAN January 05, 2018 10:34
[2018-01-05 12:00] VITALS: BP 109/57
--- NOTE | 2018-01-06 10:36 | Discharge Summary ---
Discharge Summary Discharge Summary Discharge Summary DATE OF ADMISSION: 01/02/2018 DATE OF DISCHARGE: 01/05/2018 CONSULTANTS: Dr. Josinae Harrell BRIEF HOSPITAL COURSE: Patient is an 82-year-old male, who lives at home with family, who was recently discharged from an outside hospital due to pneumonia. He was found to be hypoxic. called EMS. He was found to have low oxygen and was given supplementation. He has history of throat CA, seizure, dementia, hypothyroidism , he is status post gastrostomy tube placement. On evaluation at ED, workup showed leukocytosis, WBC was 18.5. Troponin was 0.017, proBNP was 201. Urinalysis showed 40-60 RBC, 0-2 WBC, negative nitrite, 1+ protein and 5+ occult blood. He had an EKG that showed sinus tachycardia. Chest x-ray done showed bilateral infiltrates. He was admitted for evaluation of sepsis, possible UTI, and pneumonia. He was pancultured. Home medications were continued. Amiodarone was placed on hold. He was placed on seizure precautions and was continued on Dilantin. He was seen by infectious disease specialist. He was given vancomycin, Zosyn and doxycycline. Sputum culture showed growth of Staphylococcus aureus with usual respiratory frantz. Blood culture with growth of Moraxella, possible contaminant. Second set of blood culture did not isolate any growth after 72 hours. He was MRSA and VRE positive. Doxycycline and vancomycin was discontinued, he was given Zosyn. He was eventually discharged home. FINAL DIAGNOSES: Sepsis, present on admission Possible UTI Pneumonia Hypoxemia Cardiac dysrhythmia Chronic G-tube Seizure disorder DISPOSITION: Patient was discharged home. DISCHARGE MEDICATIONS: Refer to Discharge Medication List. Continue Levaquin 500 mg by mouth daily 7 days. DISCHARGE INSTRUCTIONS: Follow up with PCP in a week. I have been assigned to dictate discharge summary on this account, and I was not involved in the patient's management. Lucita Finnegan NP January 06, 2018 10:36
== END 2018-01-05 16:28 | disposition home or self-care (01) | DRG 871 ==
LOC: EDBD 12:00 → EMR 12:40 → 2E 12:46 → EDBEDREQ 13:03
DX: A41.9 Sepsis, unspecified organism (principal); J18.9 Pneumonia, unspecified organism; N39.0 Urinary tract infection, site not specified; Z43.1 Encounter for attention to gastrostomy; R09.02 Hypoxemia; I49.9 Cardiac arrhythmia, unspecified; G40.909 Epilepsy, unspecified, not intractable, without status epilepticus; Z22.322 Carrier or suspected carrier of Methicillin resistant Staphylococcus aureus; I10 Essential (primary) hypertension; E03.9 Hypothyroidism, unspecified; F03.90 Unspecified dementia, unspecified severity, without behavioral disturbance, psychotic disturbance, mood disturbance, and anxiety; Z85.89 Personal history of malignant neoplasm of other organs and systems
CPT/HCPCS: 36415; 71045; 80048; 80053; 81003; 82550; 83605; 83880; 84484; 85007; 85025; 85610; 85730; 87040; 87070; 87081; 87181; 87205; 93005; 93306; 94640; 94664; 99285